=== PATIENT | male | born 1985 | race African-American/Black ===

== ENCOUNTER 2017-07-23 09:21 | Inpatient (IN) | payer OTHER ==
--- NOTE | 2017-07-23 09:56 | RADIOLOGY REPORT (SQ) ---
EXAM DESCRIPTION: CHEST SINGLE VIEW COMPLETED DATE/TIME: 07/23/2017 9:43 am REASON FOR STUDY: bed 12 sroke alert facial numbness/headache per dr COMPARISON: None. EXAM PARAMETERS: NUMBER OF VIEWS: One view. TECHNIQUE: Single frontal radiographic view of the chest acquired. RADIATION DOSE: NA LIMITATIONS: None. FINDINGS: LUNGS AND PLEURA: No opacities, masses or pneumothorax. No pleural effusion. MEDIASTINUM AND HILAR STRUCTURES: No masses. Contour normal. HEART AND VASCULAR STRUCTURES: Heart normal in size. Normal vasculature. BONES: No acute findings. HARDWARE: None in the chest. OTHER: No other significant finding. IMPRESSION: NO ACUTE RADIOGRAPHIC FINDING IN THE CHEST. TECHNICAL DOCUMENTATION: JOB ID: [id number]
--- NOTE | 2017-07-23 09:56 | RADIOLOGY REPORT (SQ) ---
EXAM DESCRIPTION: CT HEAD WITHOUT COMPLETED DATE/TIME: 07/23/2017 9:42 am REASON FOR STUDY: bed 12 sroke alert facial numbness/headache per dr COMPARISON: None. TECHNIQUE: Axial images acquired through the brain without intravenous contrast. Images reviewed wi th bone, brain and subdural windows. Images stored on PACS. All CT scanners at this facility use dose modulation, iterative reconstruction, and/or weight based d osing when appropriate to reduce radiation dose to as low as reasonably achievable (ALARA). [facility]: Dose Right [facility]: CareDose [facility]: Dose Right [facility]: Teradose 4D [facility]: Smart Prelert RADIATION DOSE: Up-to-date CT equipment and radiation dose reduction techniques were employed. CTDIv ol: 64.6 mGy. DLP: 1034 mGy-cm. mGy. LIMITATIONS: None. FINDINGS: VENTRICLES: Normal size and contour. CEREBRUM: No masses. No hemorrhage. No midline shift. No evidence for acute infarction. Normal gra y/white matter differentiation. No areas of low density in the white matter. CEREBELLUM: No masses. No hemorrhage. No alteration of density. No evidence for acute infarction. EXTRAAXIAL SPACES: No fluid collections. No masses. ORBITS AND GLOBE: No intra- or extraconal masses. Normal contour of globe without masses. CALVARIUM: No fracture. PARANASAL SINUSES: No fluid or mucosal thickening. SOFT TISSUES: No mass or hematoma. OTHER: No other significant finding. IMPRESSION: NORMAL BRAIN CT WITHOUT CONTRAST. EVIDENCE OF ACUTE STROKE: NO. COMMENT: Pertinent findings on the imaging study reported as a CRITICAL RESULT to [employer] at 09:40 on 07/23/2017. Category of Critical Result: CT code stroke Quality ID # [id number]: Final reports with documentation of one or more dose reduction techniques (e.g., Au tomated exposure control, adjustment of the mA and/or kV according to patient size, use of iterative reconstruction technique) TECHNICAL DOCUMENTATION: JOB ID: [id number]- All Rights Reserved
[2017-07-23 10:06] LABS: ABSOLUTE BASOPHILS # (AUTO) 0.1 10^3/uL (0.0-0.2); ABSOLUTE LYMPHOCYTES (AUTO) 1.7 10^3/uL (0.5-4.7); ABSOLUTE MONOCYTES (AUTO) 0.7 10^3/uL (0.1-1.4); ABSOLUTE NEUT (AUTO) 9.5 10^3/uL (1.7-8.2); BASOPHILS % (AUTO) 0.5 % (0-2); EOSINOPHILS % (AUTO) 0.3 % (0-6); HEMATOCRIT 42.8 % (37.9-51.0); HEMOGLOBIN 14.4 g/dL (13.5-17.0); HGB HCT DIFFERENCE 0.4; LYMPHOCYTES % (AUTO) 14.1 % (13-45); MEAN CORPUSCULAR HEMOGLOBIN 28.5 pg (27.0-33.4); MEAN CORPUSCULAR HGB CONC 33.6 g/dL (32.0-36.0); MEAN CORPUSCULAR VOLUME 85 fl (80-97); MONOCYTES % (AUTO) 5.6 % (3-13); RED BLOOD COUNT 5.05 10^6/uL (4.35-5.55); RED CELL DISTRIBUTION WIDTH 14.5 % (11.5-14.0); SEGMENTED NEUTROPHILS % (AUTO) 79.5 % (42-78); WHITE BLOOD COUNT 11.9 10^3/uL (4.0-10.5)
[2017-07-23 10:08] LABS: PROTHROMBIN TIME 12.9 SEC (11.4-15.4)
[2017-07-23 10:09] LABS: PARTIAL THROMBOPLASTIN TIME 31.7 SEC (23.5-35.8)
[2017-07-23] MEDS ORDERED: DIPHENHYDRAMINE HCL 50 MG/ML VIAL IV ONE (10:20)
[2017-07-23] MEDS ORDERED: METOCLOPRAMIDE HCL INJ/PF 10 MG/2 ML SDV IV ONE (10:20)
[2017-07-23 10:22] LABS: ALANINE AMINOTRANSFERASE 65 U/L (21-72); ALBUMIN 4.5 g/dL (3.5-5.0); ALKALINE PHOSPHATASE 54 U/L (38-126); ANION GAP 14 (5-19); ASPARTATE AMINO TRANSFERASE 29 U/L (17-59); BILIRUBIN,DIRECT 0.3 mg/dL (0.0-0.4); BILIRUBIN,TOTAL 0.8 mg/dL (0.2-1.3); BLOOD UREA NITROGEN 11 mg/dL (7-20); CARBON DIOXIDE 24 mmol/L (22-30); CHLORIDE 107 mmol/L (98-107); CREATINE KINASE 207 U/L (55-170); CREATININE RESULT 0.91 mg/dL (0.52-1.25); GLUCOSE 103 mg/dL (75-110); POTASSIUM 4.6 mmol/L (3.6-5.0); SODIUM 144.9 mmol/L (137-145); TOTAL PROTEIN 7.7 g/dL (6.3-8.2)
--- NOTE | 2017-07-23 10:24 | ER Document Report ---
ED General - General Chief Complaint: Headache Stated Complaint: HEADACHE DIZZY CHILLS Time Seen by Provider: 07/23/17 10:03 Mode of Arrival: Ambulatory Information source: Patient Notes: This is a 32-year-old man that presents to the emergency room with the worst headache of his life. The patient states that the headache started while he was cleaning the house yesterday. The onset was gradual and he reports having chills over the last day. He describes the pain as being "all over" and he describes it as severe. The patient denies any history of migraines or significant headaches in the past. He states it hurts his head when he moves his head. TRAVEL OUTSIDE OF THE [place] IN LAST 30 DAYS: No - HPI Onset: Yesterday Onset/Duration: Gradual Quality of pain: Dull Severity: Severe Pain Level: 5 Associated symptoms: Chills. denies: Fever, Shortness of breath Exacerbated by: Movement Relieved by: Denies Similar symptoms previously: No Recently seen / treated by doctor: Yes - Related Data Allergies/Adverse Reactions: No Known Allergies Allergy (Unverified 07/23/17 09:25) Past Medical History - General Information source: Patient - Social History Smoking Status: Never Smoker Cigarette use (# per day): No Chew tobacco use (# tins/day): No Frequency of alcohol use: None Drug Abuse: None Lives with: Family Family History: None Patient has suicidal ideation: No Patient has homicidal ideation: No - Past Medical History Cardiac Medical History: Reports: None Pulmonary Medical History: Reports: Hx Sleep Apnea EENT Medical History: Reports: None Neurological Medical History: Reports: None Endocrine Medical History: Reports: None Renal/ Medical History: Reports: None. Denies: Hx Peritoneal Dialysis Malignancy Medical History: Reports None GI Medical History: Reports: None Musculoskeltal Medical History: Reports None Skin Medical History: Reports None Psychiatric Medical History: Reports: Hx Anxiety, Hx Depression Traumatic Medical History: Reports: None Infectious Medical History: Reports: None Past Surgical History: Reports: Other - ENT surgery for sleep apnea Review of Systems - Review of Systems Constitutional: Chills. denies: Fever EENT: No symptoms reported Cardiovascular: No symptoms reported Respiratory: No symptoms reported Gastrointestinal: No symptoms reported Genitourinary: No symptoms reported Male Genitourinary: No symptoms reported Musculoskeletal: No symptoms reported Skin: No symptoms reported Hematologic/Lymphatic: No symptoms reported Neurological/Psychological: See HPI Physical Exam - Vital signs Vitals: Temp Pulse Resp BP Pulse Ox 99.8 F 64 14 157/83 H 98 07/23/17 09:26 07/23/17 09:26 07/23/17 09:26 07/23/17 09:26 07/23/17 09:26 Notes: Physical exam: GENERAL: 32-year-old man, alert and oriented 3, complaining of headache HEAD: Atraumatic, normocephalic. EYES: Pupils equal round and reactive to light, extraocular movements intact, sclera anicteric, conjunctiva are normal. ENT: TMs normal, nares patent, oropharynx clear without exudates. Moist mucous membranes. NECK: Normal range of motion, supple without obvious mass or JVD. LUNGS: Breath sounds clear to auscultation bilaterally and equal. No wheezes rales or rhonchi. HEART: Regular rate and rhythm without murmurs, rubs or gallops. ABDOMEN: Soft, normoactive bowel sounds. No tenderness to palpation. No guarding, no rebound. No masses appreciated. EXTREMITIES: Normal range of motion, no pitting or edema. No clubbing or cyanosis. NEUROLOGICAL: Cranial nerves II through XII grossly intact. Normal speech, moving all extremities. PSYCH: Normal mood, normal affect. SKIN: Warm, Dry, normal turgor, no rashes or lesions noted. Course - Re-evaluation Re-evalutation: 07/23/17 17:18 Note: This is a 32-year-old man that presented to the emergency room with chills and the worst headache of his life. CT of the head showed no bleed or stroke. He had mild leukocytosis. Spinal tap does show evidence of meningitis. There is a predominance of neutrophils. The patient was given IV antibiotics. He will be admitted for meningitis. - Vital Signs Vital signs: Temp Pulse Resp BP Pulse Ox 98.8 F 64 31 H 136/67 H 99 07/23/17 18:01 07/23/17 09:26 07/23/17 18:01 07/23/17 18:01 07/23/17 18:01 - Laboratory Result Diagrams: 07/23/17 09:50 07/23/17 09:50 Laboratory results interpreted by me: 07/23/17 07/23/17 07/23/17 09:50 09:50 13:18 WBC 11.9 H RDW 14.5 H Seg Neutrophils % 79.5 H Absolute Neutrophils 9.5 H Creatine Kinase 207 H CSF WBC 23 H 07/23/17 13:18 WBC RDW Seg Neutrophils % Absolute Neutrophils Creatine Kinase CSF WBC 31 H - Diagnostic Test Radiology reviewed: Image reviewed, Reports reviewed - CT of the head shows no acute bleed or stroke. Critical Care Note - Critical Care Note Total time excluding time spent on procedures (mins): 60 Discharge - Discharge Clinical Impression: Meningitis Condition: Serious Disposition: ADMITTED INPATIENT Admitting Provider: Hospitalist - Dr. reeves Unit Admitted: Medical Floor - 4
[2017-07-23 10:34] LABS: CREATINE KINASE MB 0.53 ng/mL (<4.55)
[2017-07-23 10:35] LABS: TROPONIN I < 0.012 ng/mL
--- NOTE | 2017-07-23 13:54 | RADIOLOGY REPORT (SQ) ---
EXAM DESCRIPTION: LUMBAR PUNCTURE; FLUORO/NEEDLE PLACEMENT/SPINE COMPLETED DATE/TIME: 07/23/2017 1:34 pm REASON FOR STUDY: worst jon of life; WORST JON OF LIFE COMPARISON: CT brain today FLUOROSCOPY TIME: 20 seconds 3 digital radiographic images saved to PACS. TECHNIQUE: Fluoroscopic guided lumbar puncture. LIMITATIONS: None. PROCEDURE: After written consent and assessment were obtained, the patient was brought into the fluo roscopy room and placed prone on the table. The patient's lower back was prepped in a sterile fashio n and an entry site was selected under live fluoroscopic guidance. The entry site was anesthetized wi th 4 mL of 1% lidocaine. A 20 gauge needle was advanced through the skin and into the thecal sac at t he right paracentral L2-3 level. After approximately 6 ml was drained, the needle was removed and a sterile bandage was placed of the site. Specimens were sent to the lab for testing. A fluoroscopic spot image was saved to PACS confirming level access. FINDINGS: Clear CSF Opening pressure 26 cm of water IMPRESSION: Lumbar puncture under fluoroscopy. No immediate complication. COMMENT: Patient medication list reviewed: Yes- Quality ID# [id number]:Eligible professional attests to doc umenting in the medical record they obtained, updated, or reviewed the patient's current medications. . Quality ID 145: Final reports for procedures using fluoroscopy that document radiation exposure [place] marley, or exposure time and number of fluorographic images (if radiation exposure indices are not avail able) TECHNICAL DOCUMENTATION: JOB ID: [id number] [employer]- All Rights Reserved
[2017-07-23] MEDS ORDERED: KETOROLAC TROMETHAMINE INJ/PF 30 MG/1 ML SDV IV ONE (14:12)
[2017-07-23 14:13] LABS: GLUCOSE,CSF 56 mg/dL (40-70)
[2017-07-23 14:28] LABS: APPEARANCE ALL TUBES CLEAR; RBC AVERAGE 18.5; RBC DILUENT USED NONE USED; RBC DILUTION FACTOR 1; RBC SIDE 1 20; RBC SIDE 2 17
[2017-07-23 14:29] LABS: TOTAL RBC SQUARES COUNTED 225
[2017-07-23 14:31] LABS: WHITE BLOOD CELL,CSF 31 /uL (0-5)
[2017-07-23 14:35] LABS: APPEARANCE ALL TUBES CLEAR; RBC DILUENT USED NONE USED; RBC DILUTION FACTOR 1; RBC SIDE 1 5; RBC SIDE 2 3; TOTAL RBC SQUARES COUNTED 225
[2017-07-23 14:38] LABS: WHITE BLOOD CELL,CSF 23 /uL (0-5)
[2017-07-23] MEDS ORDERED: CEFTRIAXONE 2 GM/D5W RTU 2 GM/50 ML RTUPB IV ONE (16:50)
[2017-07-23] MEDS ORDERED: VANCOMYCIN HCL INJ 1000 MG VIAL IV ONE (16:50)
[2017-07-23] MEDS ORDERED: ONDANSETRON HCL INJ/PF 4 MG/2 ML SDV IV ONE (17:30)
[2017-07-23] MEDS ORDERED: IPRATROPIUM/ALBUTEROL 0.5-2.5 MG/3 ML AMPUL NEB PRN (17:34)
[2017-07-23] MEDS ORDERED: ONDANSETRON HCL INJ/PF 4 MG/2 ML SDV IV PRN (17:34)
[2017-07-23] MEDS ORDERED: ONDANSETRON 4 MG TAB.RAPDIS PO PRN (17:34)
[2017-07-23] MEDS ORDERED: ACETAMINOPHEN 325 MG TABLET PO PRN (17:34)
[2017-07-23] MEDS ORDERED: VANCOMYCIN HCL 0 MG in DEXTROSE 5%-WATER 250 ML IV NR (18:00)
--- NOTE | 2017-07-23 18:04 | PDOC H&P ---
History of Present Illness Admission Date/PCP: 07/23/17 16:57 Patient complains of: Headache History of Present Illness: MARTHA FELDMAN is a 32 year old male followed at the [place] who presents with the worst headache of his life. He reports that his headache started yesterday and was generalized. He also has some chills but no obvious fevers. He also does report having some photophobia. Patient denies any focal weakness. He denies any head trauma. He denies any recent travel. Denies being around anyone has been sick. The patient had a head CT that was unremarkable and lumbar puncture shows him to have elevated white blood cells. He is admitted for meningitis. Is not clear whether this is viral or bacterial given the differential. Past Medical History Cardiac Medical History: Reports: Hypertension Pulmonary Medical History: Reports: Sleep Apnea EENT Medical History: Reports: None Neurological Medical History: Reports: None Endocrine Medical History: Reports: None Renal/ Medical History: Reports: None Malignancy Medical History: Reports: None GI Medical History: Reports: None Musculoskeltal Medical History: Reports: None Skin Medical History: Reports: None Psychiatric Medical History: Reports: Depression, General Anxiety Disorder Traumatic Medical History: Reports: None Hematology: Reports: None Infectious Medical History: Reports: None Past Surgical History Past Surgical History: Reports: Other - ENT surgery for sleep apnea Social History Information Source: Patient Lives with: Family Smoking Status: Never Smoker Frequency of Alcohol Use: None Hx Recreational Drug Use: No Drugs: None Hx Prescription Drug Abuse: No - Advance Directive Resuscitation Status: Full Code Family History Family History: Father in his 30s from a gunshot wound. Mother is 54 alive and healthy. Parental Family History Reviewed: Yes Children Family History Reviewed: No Sibling(s) Family History Reviewed.: No Medication/Allergy Allergies/Adverse Reactions: No Known Allergies Allergy (Unverified 07/23/17 09:25) Review of Systems Constitutional: PRESENT: chills. ABSENT: fever(s), headache(s), weight gain, weight loss Eyes: PRESENT: other - Photophobia Ears: ABSENT: hearing changes Cardiovascular: ABSENT: chest pain, dyspnea on exertion, edema, orthropnea, palpitations Respiratory: ABSENT: cough, hemoptysis Gastrointestinal: ABSENT: abdominal pain, constipation, diarrhea, hematemesis, hematochezia, nausea, vomiting Genitourinary: ABSENT: dysuria, hematuria Musculoskeletal: ABSENT: joint swelling Integumentary: ABSENT: rash, wounds Neurological: PRESENT: as per HPI Psychiatric: ABSENT: anxiety, depression Endocrine: ABSENT: cold intolerance, heat intolerance, polydipsia, polyuria Hematologic/Lymphatic: ABSENT: easy bleeding, easy bruising Physical Exam Vital Signs: Temp Pulse Resp BP Pulse Ox 98.9 F 64 28 H 138/78 H 100 07/23/17 16:54 07/23/17 09:26 07/23/17 16:54 07/23/17 16:54 07/23/17 16:54 Intake & Output 07/22/17 07/23/17 07/24/17 06:59 06:59 06:59 Intake Total 50 Output Total 360 Balance -310 General appearance: PRESENT: no acute distress, obese Head exam: PRESENT: atraumatic, normocephalic Eye exam: PRESENT: conjunctiva pink, EOMI, PERRLA. ABSENT: scleral icterus Ear exam: PRESENT: normal external ear exam Mouth exam: PRESENT: moist, tongue midline Neck exam: PRESENT: meningismus. ABSENT: carotid bruit, JVD, lymphadenopathy, thyromegaly Respiratory exam: PRESENT: clear to auscultation kami. ABSENT: rales, rhonchi, wheezes Cardiovascular exam: PRESENT: RRR. ABSENT: diastolic murmur, rubs, systolic murmur Vascular exam: PRESENT: normal capillary refill GI/Abdominal exam: PRESENT: normal bowel sounds, soft. ABSENT: distended, guarding, mass, organolmegaly, rebound, tenderness Extremities exam: ABSENT: calf tenderness, clubbing, pedal edema Neurological exam: PRESENT: alert, awake, oriented to person, oriented to place , oriented to time, oriented to situation, CN II-XII grossly intact. ABSENT: motor sensory deficit Psychiatric exam: PRESENT: appropriate affect Skin exam: PRESENT: dry, intact, warm. ABSENT: cyanosis, rash Results Impressions: Guidance Fluoroscopy 07/23/17 00:00 IMPRESSION: Lumbar puncture under fluoroscopy. No immediate complication. Chest X-Ray 07/23/17 09:33 IMPRESSION: NO ACUTE RADIOGRAPHIC FINDING IN THE CHEST. Head CT 07/23/17 09:33 IMPRESSION: NORMAL BRAIN CT WITHOUT CONTRAST. EVIDENCE OF ACUTE STROKE: NO. Lumbar Puncture 07/23/17 10:22 IMPRESSION: Lumbar puncture under fluoroscopy. No immediate complication. Assessment & Plan - Diagnosis (1) Meningitis Is this a current diagnosis for this admission?: Yes Plan: The patient has meningitis. Is not clear whether this is viral or bacterial. He had 31 white blood cells on his lumbar puncture. 53% however were neutrophils and 37% lymphocytes. Given his relatively benign clinical picture I suspect that this most likely is viral meningitis however we will treat empirically with vancomycin and Rocephin and await the culture results. We will give IV fluids and analgesics as needed. (3) Anxiety Is this a current diagnosis for this admission?: Yes Plan: Patient is followed at the [place]. He is unaware of what medications he takes for this. (4) Obstructive sleep apnea Is this a current diagnosis for this admission?: Yes Plan: The patient uses CPAP at night. - Time Time Spent: 50 to 70 Minutes - Inpatient Certification Medical Necessity: Need for IV Antibiotics
--- NOTE | 2017-07-23 19:50 | EKG REPORT ---
SEVERITY:- BORDERLINE ECG - SINUS RHYTHM BORDERLINE R WAVE PROGRESSION, ANTERIOR LEADS : Confirmed by: Gilles Pruett MD 23-Jul-2017 19:49:18
[2017-07-23] MEDS ORDERED: INFLUENZA ADLT QUAD (36MOS+) 2017-18 VAC 0.5 ML SYR IM PRN (20:31)
[2017-07-23] MEDS: FAMOTIDINE 20 MG TABLET PO SCH (21:10)
[2017-07-23] MEDS: OXYCODONE-ACETAMINOPHEN 5-325 MG TABLET PO PRN (21:10)
[2017-07-24] MEDS: NORMAL SALINE 1000 ML 1,000 ML IV PRN ×2 (04:30→16:10)
[2017-07-24] MEDS: OXYCODONE-ACETAMINOPHEN 5-325 MG TABLET PO PRN ×3 (04:43→20:08)
[2017-07-24 05:47] LABS: ABSOLUTE EOSINOPHILS # (AUTO) 0.1 10^3/uL (0.0-0.6); ABSOLUTE LYMPHOCYTES (AUTO) 2.3 10^3/uL (0.5-4.7); ABSOLUTE MONOCYTES (AUTO) 0.9 10^3/uL (0.1-1.4); ABSOLUTE NEUT (AUTO) 6.5 10^3/uL (1.7-8.2); BASOPHILS % (AUTO) 0.5 % (0-2); EOSINOPHILS % (AUTO) 1.1 % (0-6); HEMATOCRIT 39.6 % (37.9-51.0); HEMOGLOBIN 13.3 g/dL (13.5-17.0); HGB HCT DIFFERENCE 0.3; LYMPHOCYTES % (AUTO) 23.2 % (13-45); MEAN CORPUSCULAR HEMOGLOBIN 28.8 pg (27.0-33.4); MEAN CORPUSCULAR HGB CONC 33.6 g/dL (32.0-36.0); MEAN CORPUSCULAR VOLUME 86 fl (80-97); MONOCYTES % (AUTO) 9.3 % (3-13); RED BLOOD COUNT 4.63 10^6/uL (4.35-5.55); RED CELL DISTRIBUTION WIDTH 14.5 % (11.5-14.0); SEGMENTED NEUTROPHILS % (AUTO) 65.9 % (42-78); WHITE BLOOD COUNT 9.9 10^3/uL (4.0-10.5)
[2017-07-24 06:14] LABS: ANION GAP 11 (5-19); BLOOD UREA NITROGEN 14 mg/dL (7-20); CALCIUM 9.2 mg/dL (8.4-10.2); CARBON DIOXIDE 27 mmol/L (22-30); CHLORIDE 106 mmol/L (98-107); CREATININE RESULT 1.07 mg/dL (0.52-1.25); GLUCOSE 88 mg/dL (75-110); POTASSIUM 4.2 mmol/L (3.6-5.0); SODIUM 144.3 mmol/L (137-145)
[2017-07-24] MEDS: FAMOTIDINE 20 MG TABLET PO SCH ×2 (09:27→22:53)
[2017-07-24] MEDS: VANCOMYCIN HCL 1,500 MG in DEXTROSE 5%-WATER 250 ML IV SCH ×2 (09:28→17:53)
--- NOTE | 2017-07-24 12:12 | PDOC PROGRESS REPORT ---
Subjective Progress Note for:: 07/24/17 Subjective:: Complains of a generalized headache and photophobia. Physical Exam Vital Signs: Temp Pulse Resp BP Pulse Ox 98.2 F 48 L 13 136/73 H 100 07/24/17 08:40 07/24/17 08:40 07/24/17 08:40 07/24/17 08:40 07/24/17 08:40 Intake & Output 07/23/17 07/24/17 07/25/17 06:59 06:59 06:59 Intake Total 2800 Output Total 550 Balance 2250 Weight 128.8 kg General appearance: PRESENT: no acute distress Eye exam: PRESENT: conjunctiva pink. ABSENT: scleral icterus Mouth exam: PRESENT: moist, tongue midline Neck exam: ABSENT: JVD Respiratory exam: PRESENT: clear to auscultation kami. ABSENT: rales, rhonchi, wheezes Cardiovascular exam: PRESENT: RRR. ABSENT: diastolic murmur, rubs, systolic murmur GI/Abdominal exam: PRESENT: normal bowel sounds, soft. ABSENT: distended, guarding, mass, organolmegaly, rebound, tenderness Extremities exam: ABSENT: calf tenderness, clubbing, pedal edema Neurological exam: PRESENT: alert, awake, oriented to person, oriented to place , oriented to time, oriented to situation, CN II-XII grossly intact. ABSENT: motor sensory deficit Psychiatric exam: PRESENT: appropriate affect Skin exam: PRESENT: dry, intact, warm. ABSENT: cyanosis, rash Results Laboratory Results: 07/24/17 04:43 07/24/17 04:43 07/24/17 07/24/17 04:43 04:43 WBC 9.9 RBC 4.63 Hgb 13.3 L Hct 39.6 MCV 86 MCH 28.8 MCHC 33.6 RDW 14.5 H Plt Count 204 Seg Neutrophils % 65.9 Lymphocytes % 23.2 Monocytes % 9.3 Eosinophils % 1.1 Basophils % 0.5 Absolute Neutrophils 6.5 Absolute Lymphocytes 2.3 Absolute Monocytes 0.9 Absolute Eosinophils 0.1 Absolute Basophils 0.0 Sodium 144.3 Potassium 4.2 Chloride 106 Carbon Dioxide 27 Anion Gap 11 BUN 14 Creatinine 1.07 Est GFR ( Amer) > 60 Est GFR (Non-Af Amer) > 60 Glucose 88 Calcium 9.2 Impressions: Guidance Fluoroscopy 07/23/17 00:00 IMPRESSION: Lumbar puncture under fluoroscopy. No immediate complication. Chest X-Ray 07/23/17 09:33 IMPRESSION: NO ACUTE RADIOGRAPHIC FINDING IN THE CHEST. Head CT 07/23/17 09:33 IMPRESSION: NORMAL BRAIN CT WITHOUT CONTRAST. EVIDENCE OF ACUTE STROKE: NO. Lumbar Puncture 07/23/17 10:22 IMPRESSION: Lumbar puncture under fluoroscopy. No immediate complication. Assessment & Plan - Diagnosis (1) Meningitis Is this a current diagnosis for this admission?: Yes Plan: The patient has meningitis. Is not clear whether this is viral or bacterial. He had 31 white blood cells on his lumbar puncture. 53% however were neutrophils and 37% lymphocytes. Given his relatively benign clinical picture I suspect that this most likely is viral meningitis however we will treat empirically with vancomycin and Rocephin and await the culture results. We will give IV fluids and analgesics as needed. (2) Hypertension Is this a current diagnosis for this admission?: Yes Plan: Blood pressure is stable without medications at this time. (3) Anxiety Is this a current diagnosis for this admission?: Yes Plan: Patient is followed at the [facility]. He is unaware of what medications he takes for this. (4) Obstructive sleep apnea Is this a current diagnosis for this admission?: Yes Plan: The patient uses CPAP at night. - Time Time Spent with patient: 25-34 minutes - Inpatient Certification Medical Necessity: Need for IV Antibiotics
[2017-07-24] MEDS ORDERED: CEFTRIAXONE 1 GM/D5W RTU 1 GM/50 ML RTUPB IV SCH (18:00)
[2017-07-25] MEDS: VANCOMYCIN HCL 1,500 MG in DEXTROSE 5%-WATER 250 ML IV SCH (03:23)
[2017-07-25] MEDS: NORMAL SALINE 1000 ML 1,000 ML IV PRN (03:24)
[2017-07-25] MEDS: OXYCODONE-ACETAMINOPHEN 5-325 MG TABLET PO PRN (08:39)
[2017-07-25 09:15] VITALS: BP 150/71
--- NOTE | 2017-07-25 10:07 | PDOC DISCHARGE SUMMARY ---
General - Admit/Disc Date/PCP Admission Date/Primary Care Provider: 07/23/17 17:34 Discharge Date: 07/25/17 - Discharge Diagnosis (1) Meningitis Is this a current diagnosis for this admission?: Yes Summary: Secondary to viral meningitis. Cultures have been negative. (2) Hypertension Is this a current diagnosis for this admission?: Yes (3) Anxiety Is this a current diagnosis for this admission?: Yes (4) Obstructive sleep apnea Is this a current diagnosis for this admission?: Yes - Additional Information Resuscitation Status: Full Code Discharge Diet: Regular Discharge Activity: Activity As Tolerated Home Medications: Flu Vacc [id number] [id number] Up/Pf [Fluzone Adlt Quad [id number] Vac 0.5 ml Syr] 0.5 ml IM .DISCHARGE PRN disp.syrin 07/25/17 Oxycodone HCl/Acetaminophen [Percocet 5-325 mg Tablet] 1 tab PO Q4HP PRN #14 tablet 07/25/17 History of Present Illness History of Present Illness: PHLEPEMA FELDMAN is a 32 year old male followed at the [facility] who presents with the worst headache of his life. He reports that his headache started yesterday and was generalized. He also has some chills but no obvious fevers. He also does report having some photophobia. Patient denies any focal weakness. He denies any head trauma. He denies any recent travel. Denies being around anyone has been sick. The patient had a head CT that was unremarkable and lumbar puncture shows him to have elevated white blood cells. He is admitted for meningitis. Is not clear whether this is viral or bacterial given the differential. Hospital Course Hospital Course: 32-year-old male who presented with neck pain and photophobia. The patient had a lumbar puncture that did show him to have meningitis. The patient however had a cell count differential that was not clearly bacterial or viral. The patient's presentation was suggestive of viral meningitis. Because of this the patient was started empirically on vancomycin and Rocephin for treatment of meningitis. The patient was monitored for 2 days and the cultures were negative. It is presumed that this represented very early viral meningitis. The patient was tolerating a diet well and his pain was tolerable with just oral medications. It was felt the patient was stable for discharge to home and will be given a prescription for analgesics. Patient's other medical problems including hypertension and obstructive sleep apnea were stable during this hospitalization. Physical Exam Vital Signs: Temp Pulse Resp BP Pulse Ox 97.9 F 51 L 16 150/71 H 99 07/25/17 09:58 07/25/17 09:58 07/25/17 09:58 07/25/17 09:58 07/25/17 09:58 Intake & Output 07/24/17 07/25/17 07/26/17 06:59 06:59 06:59 Intake Total 2800 3710 Output Total 550 1500 Balance 2250 2210 Weight 128.8 kg 128.8 kg General appearance: PRESENT: no acute distress Eye exam: PRESENT: conjunctiva pink. ABSENT: scleral icterus Mouth exam: PRESENT: moist, tongue midline Neck exam: ABSENT: JVD Respiratory exam: PRESENT: clear to auscultation kami. ABSENT: rales, rhonchi, wheezes Cardiovascular exam: PRESENT: RRR. ABSENT: diastolic murmur, rubs, systolic murmur GI/Abdominal exam: PRESENT: normal bowel sounds, soft. ABSENT: distended, guarding, mass, organolmegaly, rebound, tenderness Extremities exam: ABSENT: calf tenderness, clubbing, pedal edema Neurological exam: PRESENT: alert, awake, oriented to person, oriented to place , oriented to time, oriented to situation, CN II-XII grossly intact. ABSENT: motor sensory deficit Psychiatric exam: PRESENT: appropriate affect Skin exam: PRESENT: dry, intact, warm. ABSENT: cyanosis, rash Results Laboratory Results: 07/24/17 04:43 07/24/17 04:43 Impressions: Guidance Fluoroscopy 07/23/17 00:00 IMPRESSION: Lumbar puncture under fluoroscopy. No immediate complication. Chest X-Ray 07/23/17 09:33 IMPRESSION: NO ACUTE RADIOGRAPHIC FINDING IN THE CHEST. Head CT 07/23/17 09:33 IMPRESSION: NORMAL BRAIN CT WITHOUT CONTRAST. EVIDENCE OF ACUTE STROKE: NO. Lumbar Puncture 07/23/17 10:22 IMPRESSION: Lumbar puncture under fluoroscopy. No immediate complication. Qualifiers PATEINT BEING DISCHARGED WITH ANY OF THE FOLLOWING DIAGNOSIS?: No Plan Discharge Plan: Patient is discharged home in stable condition. Will follow up with his primary care in 2 weeks. Time Spent: Less than 30 Minutes
== END 2017-07-25 09:59 | disposition home or self-care (01) | DRG 76 ==
LOC: ER 09:21 → EH 16:57 → UNDOADMIN 16:57 → EH 17:34 → 4S 19:20 → EH 19:20
PROVIDERS: ADMIT Internal Medicine; ATTEND Internal Medicine
PROC: 009U3ZX Drainage of Spinal Canal, Percutaneous Approach, Diagnostic (ICD-10-PCS; principal; 2017-07-23)
PROC: B01B1ZZ Fluoroscopy of Spinal Cord using Low Osmolar Contrast (ICD-10-PCS; 2017-07-23)
DX: A87.9 Viral meningitis, unspecified (principal); I10 Essential (primary) hypertension; F32.9 Major depressive disorder, single episode, unspecified; F41.9 Anxiety disorder, unspecified; G47.33 Obstructive sleep apnea (adult) (pediatric)
CPT/HCPCS: 36415; 62270; 70450; 71010; 77003; 80048; 80053; 82550; 82553; 82945; 84157; 84484; 85025; 85610; 85730; 87040; 87070; 87077; 87205; 89050; 93005; 93010; 94660; 96374; 96375; 99291; J0696; J1200; J1885; J2405; J2765; J3370; J7030; J7060